=== PATIENT | male | born 1985 | race Caucasian/White ===

== ENCOUNTER 2019-10-20 08:41 | Emergency (ER) | payer SELFPAY ==
--- NOTE | 2019-10-20 08:52 | ED.URI ---
HPI - URI/Sore Throat General Chief Complaint: Upper Respiratory Infection Stated Complaint: Allergies Time Seen by Provider: 10/20/19 08:52 Source: patient and RN notes reviewed History of Present Illness HPI Narrative: Patient is a 34-year-old male presents the urgent care with complaints of sneezing . 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 His boss stated that he needed to be seen before he came back to work . Patient states that he does have seasonal allergies and takes Zeenat daily and just took his last dose at 6:30 AM this morning. Patient has not had any upper respiratory symptoms and states that these are his normal allergy symptoms . Patient denies any shortness of breath, recent fever, nausea, vomiting, chest tightness. Patient denies any known exposure COVID. No other acute complaints. No acute distress noted. Patient read the plan of care. Related Data Home Medications Medication Instructions Recorded Confirmed Zeenat-D 12 Hour 10/20/19 Allergies Allergy/AdvReac Type Severity Reaction Status Date / Time Sulfa (Sulfonamide Allergy Mild LOW BP Verified 05/24/17 13:03 Antibiotics) Review of Systems Review of Systems: Narrative: CONSTITUTIONAL: Denies fever, chills, or sweats. EYES: Denies visual changes, redness; reports of watery eyes ENT: Reports of sneezing CARDIOVASCULAR: Denies chest pain, palpitations, or edema. RESPIRATORY: Denies cough or dyspnea. GASTROINTESTINAL: Denies abdominal pain, nausea, vomiting, or diarrhea. GENITOURINARY: Denies dysuria or hematuria. SKIN: Denies rash or itching. MUSCULOSKELETAL: Denies back pain, joint pain, or myalgia. NEUROLOGIC: Denies headache, numbness, or weakness. All other systems reviewed are negative, except as documented in HPI. PMFSH Comments At the time of my signature, I reviewed and agree with the nursing past medical, surgical, social, and family history. There is no relevant family history pertinent to the patient complaint. Exam Narrative: Exam Narrative: GENERAL: This is a well-nourished, well-developed patient, in no apparent distress. HEAD: normocephalic, atraumatic. EYES: PERRL. Sclera clear/white. Vision is grossly intact. EARS: External ears normal, auditory canals clear and without drainage, TMs normal without perforation. Hearing grossly intact. NOSE: External nose normal with no obvious nasal discharge, nares without redness, no rhinorrhea. THROAT: Mucous membranes moist, posterior pharynx clear. NECK: Neck supple CARDIOVASCULAR: Regular rate and rhythm without murmurs, gallops, or rubs. RESPIRATORY: Clear to auscultation. Breath sounds equal bilaterally. No wheezes, rales, or rhonchi. SKIN: warm, intact with no suspicious lesions or rash, good texture and turgor. NEURO: awake, alert, and oriented to person, place and time. There were no obvious focal neurologic abnormalities. EXTREMITIES: No clubbing, cyanosis, or edema. Course Vital Signs Vital signs: Vital Signs Temperature 98.2 F 10/20/19 08:55 Pulse Rate 106 H 10/20/19 08:55 Respiratory Rate 16 10/20/19 08:55 Blood Pressure 125/95 H 10/20/19 08:55 Pulse Oximetry 100 10/20/19 08:55 Temperature 98.2 F 10/20/19 08:55 Pulse Rate 106 H 10/20/19 08:55 Respiratory Rate 16 10/20/19 08:55 Blood Pressure 125/95 H 10/20/19 08:55 Pulse Oximetry 100 10/20/19 08:55 Reviewed?patient is informed that they may have pre-hypertension or hypertension based on a blood pressure reading in the department. I recommend the patient call the primary care provider listed on their discharge instructions or a physician of their choice this week to arrange follow-up for further evaluation of possible pre-hypertension or hypertension. MDM - URI/Sore Throat MDM Narrative Medical decision making narrative: Advised the patient to continue usin
[2019-10-20 08:55] VITALS: BP 125/95; PULSE 106; RESP 16; TEMP 36.8; O2SAT 100
== END 2019-10-20 09:09 | disposition home or self-care (01) ==
PROVIDERS: Emergency Provider Nurse Practitioner Family; PCP Family Medicine
DX: J30.2 Other seasonal allergic rhinitis (principal)
CPT/HCPCS: 99211; G0463